=== PATIENT | male | born 1990 | race Two or more races ===

== ENCOUNTER 2024-12-24 19:04 | Emergency (ER) | payer BC ==
[~2024-12-24] VITALS: Ht 172.7 cm; Wt 79.4 kg
[2024-12-24] MEDS ORDERED: DICYCLOMINE HCL LIQ 10 MG/5 ML UDC ONE ×2 (19:30→19:37)
[2024-12-24] MEDS ORDERED: LIDOCAINE VISCUS 2% 15 ML UDC ONE (19:30)
[2024-12-24] MEDS ORDERED: MAG HYDROX/AL HYDROX/SIMETH 30 ML LIQUID UDC ONE (19:31)
[2024-12-24 19:33] LABS: BASOPHILS % (AUTO) 0.6 % (0.0-2.0); EOSINOPHILS # (AUTO) 0.1 K/uL (0.0-0.7); EOSINOPHILS % (AUTO) 1.3 % (0.0-7.0); HEMATOCRIT 44.8 % (36.7-47.1); HEMOGLOBIN 15.2 g/dL (12.5-16.3); LYMPHOCYTES # (AUTO) 1.9 K/uL (0.8-4.8); LYMPHOCYTES % (AUTO) 25.8 % (20.5-51.5); MEAN CORPUSCULAR HEMOGLOBIN 30.1 uug (23.8-33.4); MEAN CORPUSCULAR HGB CONC 34 g/dL (32.5-36.3); MEAN CORPUSCULAR VOLUME 88.5 fL (73.0-96.2); MONOCYTES # (AUTO) 0.8 K/uL (0.1-1.30); MONOCYTES % (AUTO) 11.6 % (0.0-11.0); NEUTROPHILS # (AUTO) 4.5 K/uL (1.8-8.9); NEUTROPHILS % (AUTO) 60.7 % (38.5-71.5); PLATELET COUNT (AUTO) 285 K/uL (152-348); RED BLOOD CELL COUNT(AUTO) 5.06 MIL/uL (4.06-5.63); RED CELL DISTRIBUTION WIDTH 13.7 % (12.1-16.2); WHITE BLOOD COUNT (AUTO) 7.3 K/uL (3.6-10.2)
[2024-12-24 19:36] LABS: DIFFERENTIAL COMMENT 1
[2024-12-24] MEDS: MAG HYDROX/AL HYDROX/SIMETH 30 ML LIQUID UDC PO ONE (19:42)
[2024-12-24] MEDS: LIDOCAINE VISCUS 2% 15 ML UDC MM ONE (19:42)
[2024-12-24] MEDS: DICYCLOMINE HCL LIQ 10 MG/5 ML UDC PO ONE (19:42)
[2024-12-24 19:43] LABS: CALCIUM 8.8 mg/dL (8.5-10.1); CREATININE 1.1 mg/dL (0.6-1.3); POTASSIUM 4.4 mmol/L (3.5-5.1)
[2024-12-24 19:54] LABS: ALBUMIN 3.3 g/dL (3.4-5.0); BILIRUBIN,DIRECT 0.1 mg/dL (0.0-0.2); BILIRUBIN,TOTAL 0.3 mg/dL (0.2-1.0); TOTAL PROTEIN, SERUM 6.7 g/dL (6.4-8.2)
[2024-12-24] MEDS ORDERED: ONDA4TAB11 PO (20:50)
[2024-12-24] MEDS ORDERED: MAG-55 PO (20:50)
[2024-12-24] MEDS ORDERED: DICY20TA11 PO (20:50)
[2024-12-24] MEDS ORDERED: SUCR1TAB31 PO (20:50)
[2024-12-24 22:10] VITALS: BP 125/72; TEMP 98.6; O2SAT 100
== END 2024-12-24 22:13 | disposition home or self-care (01) ==
LOC: ER 19:04
DX: R10.13 Epigastric pain (principal); R11.0 Nausea; F12.90 Cannabis use, unspecified, uncomplicated; F17.210 Nicotine dependence, cigarettes, uncomplicated; Z60.2 Problems related to living alone
CPT/HCPCS: 36415; 83690; 85025; A4606; A4663